=== PATIENT | female | born 1980 | race Caucasian/White ===

== ENCOUNTER → 2021-11-18 01:59 | Outpatient (CLI) | payer OTHER, SELFPAY ==
[2021-11-18 19:36] LABS: SARS-CoV-2 RNA PCR Negative
== END ==
PROVIDERS: PCP Family Medicine; Visit Provider Student in an Organized Health Care Education/Training Program
DX: Z01.812 Encounter for preprocedural laboratory examination (principal); Z20.822 Contact with and (suspected) exposure to COVID-19
CPT/HCPCS: 36415; 80048; C9803; U0003; U0005

== ENCOUNTER 2021-11-18 10:11 | Outpatient (CLI) | payer OTHER, SELFPAY ==
[2021-11-18 11:06] LABS: Anion Gap 7 mmol/L (8-16); Blood Urea Nitrogen 15 mg/dL (7-17); Calcium 9.2 mg/dL (8.4-10.2); Carbon Dioxide 27 mmol/L (22-30); Chloride 104 mmol/L (98-107); Estimated Glomerular Filt Rate > 60; Glucose 96 mg/dL (65-110); Sodium 138 mmol/L (137-145)
== END 2021-11-18 10:12 | disposition home or self-care (01) ==
LOC: ANHSURGERY 10:15
PROVIDERS: Anesthesiology; Visit Provider Student in an Organized Health Care Education/Training Program
DX: Z01.812 Encounter for preprocedural laboratory examination (principal); Z51.81 Encounter for therapeutic drug level monitoring; Z79.899 Other long term (current) drug therapy
CPT/HCPCS: 36415; 80048

== ENCOUNTER 2021-11-20 00:09 | Day surgery (SDC) | payer OTHER, SELFPAY ==
[2021-11-17 14:43] VITALS: BMI 27.4
--- NOTE | 2021-11-17 14:54 | PC.NURSE ---
Report to the Outpatient Waiting Room, entrance under the green pavilion located off [facility], at time 6:00 on date 11/20/21. OR Time: 7:30. - You will be asked a series of questions to screen for COVID 19 for your protection. - A mask is required within the hospital. - No visitors are allowed at this time. Preoperative COVID Testing Requirements: COVID TEST 11/18 AT 9:45 No COVID Test needed if: (proof is required; if not received patient will have Rapid Test prior to entry) - Patient has received COVID Vaccine at least 14 days prior to procedure date or - Patient has positive COVID test result within last 90 days of surgery date. COVID Test needed if above criteria is not met If not COVID vaccinated a COVID test must be conducted within 72 hours of surgery and patient is asked to isolate self from time of testing until procedure. You will go to the [facility] for your COVID testing. The [facility] is located at the corner of [address] [facility]. You will only be called if COVID results are positive and your surgeon may reschedule your elective surgery date. Patients may have clear liquids (water, carbonated beverages, clear teas, apple juice) until 3 hours prior to surgery (4:30) with a maximum of 20 ounces. - No food from midnight until time of surgery Take the following medications with a SIP of water the morning of surgery: ALPRAZOLAM, AMLODIPINE Medications to discontinue per physician: N/A Date to take last dose: N/A Please no make-up, nail upper sorbian, hairspray, perfume, deodorant, or body powder the day of surgery. No jewelry (including any body piercings) or valuables the day of surgery, leave them at home. Please take a shower or bath the night before, or the morning of, surgery with an antibacterial soap. Wear comfortable, loose fitting clothing. - Jewelry must be removed prior to entering the operating room. Rings and piercings that are not removed may be cut off. - The hospital will not accept responsibility for valuables. - Please leave all valuables, including medications, at home the day of surgery. If you are going home after surgery, a licensed rental car ferry driver must drive you home. - NO public transportation without another adult. - We recommend that an adult stay with you for 24 hours following discharge. - We also recommend that you do not drive, make important decision, drink alcoholic beverages, or take any drugs that were not prescribed by your health care provider for at least 24 hours after your discharge time. Follow any additional instructions given to you from your surgeon. Telephone instructions given to JOZEF CRAIG and asked if any additional questions and then verbalized understanding. Patient advised to call surgeon office or pre surgery nurse liaison [phone] if any additional questions.
--- NOTE | 2021-11-20 07:22 | PM.IMHP ---
H&P: HPI History of Present Illness Date/Time: 11/20/21 07:22 Patient is a 41 year old woman with a history of LIANNA 2 who presents for a scheduled LEEP. Patient had a pap smear showing ASCUS, HPV+. A colposcopy was performed and biopsies were positive for LIANNA 2. ECC was benign. Discussion had with patient and decision made proceed with LEEP procedure for further management. In general, patient reports feeling well today without complaints. Patient also has a Paragard IUD that is overdue for removal. She desires removal and replacement with a Mirena IUD during same procedure. Chief Complaint: LIANNA 2 Paragard IUD Review of Systems Review of Systems: All systems reviewed & are unremarkable except as noted in HPI and below Constitutional: Constitutional: Reports as per HPI, Reports no additional constitutional complaints, Denies chills, Denies fever(s), Denies headache(s) and Denies night sweats Eyes: Eyes: Reports as per HPI and Reports no additional eye complaints ENT: Reports system reviewed and no additional complaints, except as documented, Reports as per HPI, Reports Normal hearing present and Denies headache(s) Cardiovascular: Cardiovascular: Reports as per HPI, Reports no additional cardiovascular complaints, Denies chest pain and Denies dyspnea Respiratory: Respiratory: Reports as per HPI, Reports no additional respiratory complaints, Denies cough and Denies dyspnea Gastrointestinal: Gastrointestinal: Reports as per HPI, Reports no additional gastrointestinal complaints, Denies abdominal pain, Denies change in bowel habits, Denies change in stool character, Denies nausea and Denies vomiting Genitourinary: Genitourinary: Reports no additional female genitourinary complaints, Reports as per HPI, Denies abnormal vaginal bleeding, Denies genital lesions, Denies hot flashes, Denies dyspareunia, Denies pelvic pain, Denies sexual dysfunction, Denies urinary incontinence, Denies vaginal discharge, Denies vaginal dryness and Denies vaginal odor Musculoskeletal: Musculoskeletal: Reports no additional musculoskeletal complaints and Reports as per HPI Integumentary/Breasts: Skin/Breast: Reports system reviewed and no additional complaints, except as docu, Reports as per HPI, Denies breast pain and Denies nipple discharge Neurologic: Reports system reviewed and no additional complaints, except as documented, Reports as per HPI, Reports Normal hearing present and Denies headache(s) Psychiatric: Psychiatric: Reports no additional psychiatric complaints, Reports as per HPI, Denies anxiety and Denies depression Endocrine: Endocrine: Reports no additional endocrine complaints and Reports as per HPI Hematologic/Lymphatic: Hematologic/Lymphatic: Reports no additional hematologic/lymphatic complaints and Reports as per HPI Allergic/Immunologic: Allergic/Immunologic: Reports no additional allergic/immunologic complaints and Reports as per HPI [facility] Past Medical History Medical History Anxiety Depression Depressive disorder Hypertension Spontaneous 1998 Vaginal delivery 05/07/1994 Surgical History Surgical History Delivery by section 07/04/2001 H/O LEEP 2007 History of breast augmentation 2007 History of cholecystectomy History of colposcopy 2007 Previous section Family History Family History Grandparent Hypertension Cerebrovascular accident Leukemia Mother Hypertension Mother Hypertension Grandparent Hypertension Cerebrovascular accident Family history of malignant neoplasm Sibling Heart defect Social History Social History Smoking packs per day: 0.5 Smoking cigarettes per day: 10.0 Years smoked: 27 Smoking pack-years: 13.50 Smoking status: Current every day smoker
[2021-11-20] MEDS: ACETAMINOPHEN 500 MG TABLET 1000 MG PO (07:46)
[2021-11-20] MEDS: LACTATED RINGERS 1,000 ML 30 ML IV CONT ×2 (07:47→08:51)
--- NOTE | 2021-11-20 07:54 | WPDHPUPDATE1 ---
History and Physical Update Update Date/Time: 11/20/21 07:54 History and Physical has been reviewed, including an updated exam of the patient. There are NO changes in the patient's condition. Risks, benefits, and alternatives have been discussed and questions answered. Patient agrees to proceed with procedure.
--- NOTE | 2021-11-20 07:58 | P.PNAN_ITS ---
Anes - Initial Pre Proc Eval Procedure: Operation Date: 11/20/21 08:00 Proposed Procedures p Loop Electrical Excision Procedure with Top Hat, Removal of Intrauterine Device, Insertion of Intrauterine Device - Aurelia Sykes MD Date/Time: 11/20/21 07:58 Surgeon: Aurelia Sykes MD Pre Op Diagnosis: LIANNA II , Contraceptive Mgmt Patient Data Age: 41 Gender: F Height: 1.57 m Weight: 70.65 kg Allergies Allergy/AdvReac Type Severity Reaction Status Date / Time No Known Allergies Allergy Verified 11/20/21 07:35 Home Medications Medication Instructions Recorded Confirmed Type amlodipine 10 mg tablet 10 mg PO DAILY 10/26/19 11/20/21 History alprazolam 0.25 mg tablet 0.25 mg PO DAILY 06/12/21 11/20/21 History valsartan-hydrochlorothiazide 1 tablet PO DAILY 11/17/21 11/20/21 History Patient hx anesthesia problems: post op nausea/vomiting Family hx anesthesia problems: none Results Review: All pre-operative results and documents have been reviewed as part of the pre-operative evaluation. [facility] Past Medical History Medical History Anxiety Depression Depressive disorder Hypertension Spontaneous 1998 Vaginal delivery 05/07/1994 Surgical History Surgical History Delivery by section 07/04/2001 H/O LEEP 2007 History of breast augmentation 2007 History of cholecystectomy History of colposcopy 2007 Previous section Family History Family History Grandparent Hypertension Cerebrovascular accident Leukemia Mother Hypertension Mother Hypertension Grandparent Hypertension Cerebrovascular accident Family history of malignant neoplasm Sibling Heart defect Social History Social History Smoking packs per day: 0.5 Smoking cigarettes per day: 10.0 Years smoked: 27 Smoking pack-years: 13.50 Smoking status: Current every day smoker Tobacco type: cigarettes Alcohol intake: never Substance use: never Substance use type: does not use Living arrangements: alone Spiritual care concerns: No Anes - Eval Final PreProcedure Day of Procedure 11/20/21 07:58 Patient weight: overweight Heart: regular rate and rhythm Lungs: clear to auscultation Airway: Mallampati scale class II Neurological: alert and oriented Last oral intake: >/= 8 hours ASA classification: II Emergent: no Anesthetic plan: proceed Anesthesia type and monitoring: general GIVS and standard monitoring Results Review: All pre-operative results and documents have been reviewed as part of the pre-operative evaluation. Informed Consent: The patient's anesthetic plan and its attendant risks and benefits were discussed with the patient/family/POA. Questions were solicited and answers provided to the satisfaction of the patient/family/POA.
[2021-11-20 08:02] VITALS: BP 148/83; PULSE 89; RESP 16; O2SAT 100
[2021-11-20] MEDS: SCOPOLAMINE 1.5 MG PATCH TRANSDERM (08:07)
[2021-11-20] MEDS: IODINE/POTASSIUM IODIDE 8 ML SOLUTION TOPICAL (08:32)
[2021-11-20 08:51] VITALS: BP 145/85; PULSE 82; RESP 16; O2SAT 99
--- NOTE | 2021-11-20 09:04 | P.OP_ITS ---
Procedure Note - Detailed Date of Procedure 11/20/21 Pre-op Diagnosis LIANNA II Paragard IUD Post-op Diagnosis same Procedure Performed Loop electrosurgical excision procedure Removal of Paragard IUD Insertion of IUD Surgeon Aurelia Sykes MD Club Attendant None Anesthesia MAC Findings Narrow area of non-uptake noted between 11:00-12:00; IUD strings visualized Description of Procedure The patient was taken to the operating room where she self-transferred to the operating room table. She was placed in dorsal supine position. Anesthesia was administered and found to be adequate. The patient was repositioned in dorsal lithotomy position and prepped and draped in the usual sterile fashion. A bivalve speculum was inserted into the vagina. The cervix was well visualized. IUD strings were visualized. IUD strings were grasped with Shiloh forceps and the Paragard IUD was removed intact and without difficulty. The IUD was handed off the field to be discarded. A paracervical block was performed with 1% lidocaine. 5 cc of lidocaine was administered on both sides for a total of 10 cc. The regular speculum was then removed and a coated bivalve speculum was inserted into the vagina. Suction tubing was connected to the speculum. The cervix was again well visualized. Lugol's solution was applied across the entire surface of the cervix. A narrow area of non-uptake was visualized between 11:00-12:00. A large-size loop was selected and connected to the electrical generator. This loop was used to make one pass across the anterior surface of the cervix. The specimen was removed and set aside. An endocervical curettage was performed. Rollerball cautery was used to cauterize the entire excision site and margins of the excision bed. Excellent hemostasis was noted. The uterine cavity was sounded to 6 cm. A Mirena IUD was inserted without difficulty. Strings were trimmed to approx. 3 cm. The procedure was deemed complete. The vagina was dried and the speculum was removed. Specimen were prepared to be sent to pathology for analysis and tagged with a suture at 12:00. The patient was cleansed and dried. She was taken out of the dorsal lithotomy position and awakened from anesthesia without difficulty. She was transported to the [facility] room in stable condition. All sponge and instrument counts were correct at the end of the procedure. Mirena IUD: [facility] [id number] Lot [id number] Exp Oct 2022 Estimated Blood Loss 2 IV Fluids 1,000 Drains No Packing No Pathology yes (anterior portion of cervix tagged at 12:00, endocervical curettage) Complications No immediate complications Condition stable Disposition PACU
[2021-11-20 09:21] VITALS: BP 139/78; PULSE 76; RESP 16
[2021-11-20 09:51] VITALS: BP 153/79; PULSE 74; RESP 16
[2021-11-20 10:20] VITALS: BP 136/80; PULSE 75; RESP 16
== END 2021-11-20 10:30 | disposition home or self-care (01) ==
PROVIDERS: Visit Provider Student in an Organized Health Care Education/Training Program
PROC: 0UBC7ZZ Excision of Cervix, Via Natural or Artificial Opening (ICD-10-PCS; CPT 57522; principal; 2021-11-20 08:00)
DX: N87.0 Mild cervical dysplasia (principal); Z30.433 Encounter for removal and reinsertion of intrauterine contraceptive device; I10 Essential (primary) hypertension; F41.8 Other specified anxiety disorders; F17.210 Nicotine dependence, cigarettes, uncomplicated
CPT/HCPCS: 57522; 58300; 58301; 88305; A9270; J1100; J2250; J2405; J2704; J3010; J7120

== ENCOUNTER 2025-08-19 01:51 | Day surgery (SDC) | payer OTHER, SELFPAY ==
--- OUTSIDE RECORDS SUMMARY | 2024-07-11 03:20 | XMS_ITS ---
Author Organization [facility] Address [address] [place] [id number] Care Team Providers Care Infrastructure Tech Name Role Phone Poppy Rust Primary Care Provider Cheo Aparicio Unavailable [phone] Maurisio Griffin Unavailable [phone] REASON FOR VISIT 3 month f/u Medications Medication SIG (Take, Route, Frequency, Duration) Notes Start Date End Date Status Valsartan-hydroCHLOROthiaz brenda 160-25 MG 1 tablet Orally Once a day; Duration: 90 days Active amLODIPine Besylate 10 MG 1 tablet Orall y Once a day; Duration: 90 days Active Sertraline HCl 50 MG 1 tablet Orally Onc e a day for 2 weeks, then take 2 tabs daily indefinitely; Duration: 30 day(s) 10/13/2021 Active ALPRAZolam 0.5 MG 1 tablet Orally Once a day PRN panic attacks; Duration: 30 days 10/13/2021 Active Encounters Encounter Location Date Provider Diagnosis [address] [address] 07/11/2024 Maurisio Griffin Plan Of Treatment No Information Progress Notes * Chiqui HOLLEY RDOB: [birth year] (44 yo F)Acc No.[id number]:07/11/2024 Progress Notes Patient: Estevan RYAN Chiqui Frances Provider: Alonzo Griffin MD :1980 A ge:43 Y S ex:Female Date:07/11/2024 Address:[address] [place] [id number] Pcp:Poppy Rust Subjective: * Chief Complaints: * 1 . 3 month f/u. * Medical History: * Medications: T aking Sertraline HCl 50 MG Tablet 1 tablet Orally Once a day for 2 weeks, then take 2 tabs daily indefinitely , Taking Valsartan-hydroCHLOROthiazide 160-25 MG Tablet 1 tablet Orally Once a day , Taking amLODIPine Besylate 10 MG Tablet 1 tablet Orally Once a day , Taking ALPRAZolam 0.5 MG Tablet 1 tablet Orally Once a day PRN panic attacks * Implants: Objective: * Vitals: Assessment: Plan: * Treatment: * Procedure Codes: D 9987 No Call No Show * Billing Information: * Visit Code: * Procedure Codes: D9987 No Call No Show. Care Plan Details* * Electronic signature of Jonas Griffin M.D. on 08/19/2025 at 01:54 AM CDT Sign off status: Pending * Provider: Alonzo Griffin MD Date: 0 07/11/2024 Generated for Johnathan dooley/Krystina/Elina on: 01:54 AM CDT
[2025-08-16 14:00] VITALS: BMI 28.4
--- OUTSIDE RECORDS SUMMARY | 2025-08-19 01:54 | XMS_ITS | Patient Health Record ---
Author Organization [facility] Address [address] [place] [address] Care Team Providers Care [place]ime [place] Worker Helper Name Role Phone Poppy Rust Primary Care Provider Cheo Aparicio Unavailable [phone] Maurisio Griffin Unavailable [phone] Allergies No Known Allergies Reason For Referral No Information Medications Medication SIG (Take, Route, Frequency, Duration) [...] panic attacks; Duration: 30 days 10/13/2021 Active Social History Tobacco Use: Social History Observation Description Date Details (start date - stop date) Current Smoker NA - NA Tobacco Use/Smoking Question Answer Notes Smoking Status: current smoker Are you interested in quitting? Thinking about q uitting How many cigarettes a day do you smoke? 6-10 How soon after you wake up d o you smoke your first cigarette? 6-30 minutes How often do you smoke cigarettes? every day Alcohol Screen (Audit-C) Question Answer Notes Did you have a drink containing alcohol in the p ast year? No Tobacco use other than smoking: Question Answer Notes Are you an other tobacco user? Yes Problems Problem Type SNOMED Code ICD Code Onset Dates Problem Status W/U Status Risk Notes Problem Anxiety (59353618) Anxiety (F41.9) Active confirmed Problem Primary hypertension (15710302) Primary hypertension (I10) Active confirmed Encounters Encounter Location Date Provider Diagnosis [facility] [address] [place] [address] 07/17/2025 Poppy Rust Positive colorectal cancer screening using Cologuard test R19.5 [facility] [address] [place] [phone] 05/07/2025 Maurisio Griffin [facility] [address] [place] [address] 05/07/2025 Poppy Rust Assessments Encounter Date Diagnosis (ICD Code) Assessment Notes Treatment Notes Treatment Clinical Notes Section Notes 07/17/2025 Positive colorectal cancer screening using Cologuard test (ICD-10 - R19.5) Plan Of Treatment Pending Test Test Name Order Date Colonoscopy 07/17/2025 Insurance Providers Payer Name Payer Address Payer Phone Subscriber Number Group Number Insured Name Patient Relationship to Insured Coverage Start Date Coverage End Date [facility] [address] [phone] [id number] Chiqui Holley Self - patient is the insured
[2025-08-19 12:38] VITALS: BP 150/95; PULSE 81; RESP 18; TEMP 36.7; O2SAT 100
[2025-08-19 12:46] LABS: BEDSIDEPREGUCG Negative (Negative)
[2025-08-19] MEDS: LACTATED RINGERS 1,000 ML 150 ML IV CONT (12:57)
--- NOTE | 2025-08-19 13:22 | P.PNAN_ITS ---
Anes - Initial Pre Proc Eval Procedure: Operation Date: 08/19/25 13:30 Proposed Procedures p Screening Colonoscopy - Giovany Smith MD Date/Time: 08/19/25 13:22 Surgeon: Giovany Smith MD Pre Op Diagnosis: Encounter for screening for malignant neoplasm of Patient Data Age: 44 Gender: F Height: 1.55 m Weight: 73.7 kg Last Vital Signs Temp 36.7 C 08/19/25 12:38 Pulse 81 08/19/25 12:38 Resp 18 08/19/25 12:38 BP 150/95 H 08/19/25 12:38 Pulse Ox 100 08/19/25 12:38 O2 Del Method Room Air 08/19/25 12:38 Allergies Allergy/AdvReac Type Severity Reaction Status Date / Time No Known Allergies Allergy Verified 08/19/25 12:37 Home Medications ?Medication ?Instructions ?Recorded ?Confirmed ?Type clonazepam 1 mg tablet (Klonopin) 1 mg PO BID 01/29/25 08/19/25 History levonorgestrel (Mirena) 1 device intrauterine ONCE 0 01/29/25 08/16/25 History losartan 100 mg tablet (Cozaar) 100 mg PO DAILY 08/16/25 History Laboratory Tests 08/19/25 12:38 POC Urine HCG, Qual Negative (Negative) Patient hx anesthesia problems: none Family hx anesthesia problems: none Results Review: All pre-operative results and documents have been reviewed as part of the pre- operative evaluation. [facility] Past Medical History Medical History Depressive disorder Vaginal delivery 05/07/1994 Spontaneous 1997 Anxiety Depression Hypertension Surgical History Surgical History H/O dilation and curettage H/O LEEP 2007 History of colposcopy 2007 History of breast augmentation 2007 History of cholecystectomy Delivery by section 07/04/2001 Previous section Family History Family History Grandparent Hypertension Cerebrovascular accident Leukemia Mother Hypertension Cerebrovascular accident Grandparent Hypertension Cerebrovascular accident Family history of malignant neoplasm Diabetes mellitus Sibling Heart defect Social History Social History Years smoked: 20 Smoking status: Current every day smoker Tobacco type: cigarettes Substance use type: does not use Living arrangements: alone Anes - Eval Final PreProcedure Day of Procedure 08/19/25 13:22 Patient weight: overweight Heart: regular rate and rhythm Lungs: decreased breath sounds Airway: Mallampati scale class III Neurological: alert and oriented Last oral intake: >/= 8 hours ASA classification: III Emergent: no Anesthetic plan: proceed Anesthesia type and monitoring: general GIVS and standard monitoring Results Review: All pre-operative results and documents have been reviewed as part of the pre-op erative evaluation. Informed Consent: The patient's anesthetic plan and its attendant risks and benefits were discussed with the patient/family/POA. Questions were solicited and answers provided to the satisfaction of the patient/family/POA.
--- NOTE | 2025-08-19 13:31 | PM.IMHP ---
H&P: HPI History of Present Illness Date/Time: 08/19/25 13:31 Chief Complaint: Screening colonoscopy Narrative: This is the patient's first colonoscopy. There are no GI symptoms and there is no family history of colorectal cancer. Review of Systems Review of Systems: All systems reviewed & are unremarkable except as noted in HPI and below PMFSH Past Medical History Medical History Depressive disorder Vaginal delivery 05/07/1994 Spontaneous 1997 Anxiety Depression Hypertension Surgical History Surgical History H/O dilation and curettage H/O LEEP 2006 History of colposcopy 2006 History of breast augmentation 2006 History of cholecystectomy Delivery by section 07/04/2001 Previous section Family History Family History Grandparent Hypertension Cerebrovascular accident Leukemia Mother Hypertension Cerebrovascular accident Grandparent Hypertension Cerebrovascular accident Family history of malignant neoplasm Diabetes mellitus Sibling Heart defect Social History Social History Years smoked: 20 Smoking status: Current every day smoker Tobacco type: cigarettes Substance use type: does not use Living arrangements: alone Meds Home Medications and Allergies Home Medications ?Medication ?Instructions ?Recorded ?Confirmed ?Type clonazepam 1 mg tablet (Klonopin) 1 mg PO BID 01/29/25 08/19/25 History levonorgestrel (Mirena) 1 device intrauterine ONCE 01/29/25 08/16/25 History losartan 100 mg tablet (Cozaar) 100 mg PO DAILY 08/16/25 08/16/25 History Allergies Allergy/AdvReac Type Severity Reaction Status Date / Time No Known Allergies Allergy Verified 08/19/25 12:37 Vital Signs Vital Signs - 24 hr 08/19/25 12:38 Temperature 98.1 F Pulse Rate 81 Respiratory Rate 18 Blood Pressure 150/95 H Pulse Oximetry 100 Oxygen Delivery Room Air Exam Const: General: cooperative and healthy appearing Resp: Effort & Inspection: normal respiratory effort and able to speak in complete sentences Auscultation: clear to auscultation bilaterally Cardio: Rate: regular rate Rhythm: regular rhythm GI: Inspection: normal to inspection GI Palp: No No hepatosplenomegaly present Auscultation: normal bowel sounds Rectal Exam: deferred Skin: General skin exam: normal color Psych: Appearance: grossly normal Mental Status: mental status grossly normal Assessment and Plan Assessment and plan (1) Colon cancer screening: Code(s): Z12.11 - Encounter for screening for malignant neoplasm of colon Status: Acute Assessment and Plan: The patient is deemed a good candidate for the procedure. Consent signed. Will proceed.
[2025-08-19 13:54] VITALS: BP 129/76; PULSE 87; RESP 19; O2SAT 100
[2025-08-19 14:04] VITALS: BP 128/79; PULSE 78; RESP 19; O2SAT 100
[2025-08-19 14:14] VITALS: BP 139/87; PULSE 72; RESP 19; O2SAT 100
== END 2025-08-19 14:28 | disposition home or self-care (01) ==
PROVIDERS: Anesthesiology; PCP Nurse Practitioner Gerontology; Referring Provider Nurse Practitioner Family; Visit Provider Internal Medicine Gastroenterology
PROC: 0DJD8ZZ Inspection of Lower Intestinal Tract, Via Natural or Artificial Opening Endoscopic (ICD-10-PCS; CPT 45378; principal; 2025-08-19 13:30)
DX: Z12.11 Encounter for screening for malignant neoplasm of colon (principal); I10 Essential (primary) hypertension; F32.A Depression, unspecified; F41.9 Anxiety disorder, unspecified; F17.210 Nicotine dependence, cigarettes, uncomplicated; Z98.890 Other specified postprocedural states; Z90.49 Acquired absence of other specified parts of digestive tract; Z80.6 Family history of leukemia; Z82.49 Family history of ischemic heart disease and other diseases of the circulatory system
CPT/HCPCS: 45378; J2704; J7120